=== PATIENT | female | born 1970 | race Caucasian/White ===

== ENCOUNTER 2016-12-06 10:44 | Day surgery (SDC) | payer OTHER ==
[2016-12-04 16:22] VITALS: BMI 22.8
[2016-12-06] MEDS ORDERED: PROPOFOL 20 ML ONE (11:15)
[2016-12-06 13:15] VITALS: BP 125/78; PULSE 65; TEMP 98.1
--- NOTE | 2016-12-08 15:20 | PATH ---
Surgical Pathology Report Patient Name: BRYANT DAVENPORT [facility]. Rec. #: [id number] /Age/Gender: 1970 (Age: 46) / F Account: [id number] Location: [facility] Taken: 12/06/2016 Received: 12/06/2016 Reported: 12/08/2016 Physicians: Soumya Vazquez M.D. Specimen(s) Received A: BX SECOND PORTION DUODENUM B: BX ANTRUM C: BX GE JUNCTION Clinical History GERD Gastritis Final Diagnosis A. SECOND PORTION DUODENUM, BIOPSY: DUODENAL MUCOSA WITH NO PATHOLOGIC FINDINGS. B. ANTRUM, BIOPSY: MILD CHRONIC GASTRITIS. IMMUNOSTAIN IS NEGATIVE FOR H. PYLORI ORGANISMS C. GE JUNCTION, BIOPSY: ESOPHAGO-GASTRIC JUNCTIONAL (SQUAMOCOLUMNAR) MUCOSA SHOWING MILD CHRONIC INFLAMMATION. NEGATIVE FOR INTESTINAL METAPLASIA. Electronically Signed Margarita Fontana M.D. Gross Description A. Received in formalin, labeled "second portion of duodenum" is a morley, irregular portion of soft tissue measuring 0.2 cm. in greatest dimension. The specimen is submitted in toto in one cassette. B. Received in formalin, labeled "antrum" are 2 morley, irregular portions of soft tissue measuring 0.1 and 0.3 cm. in greatest dimension. The specimens are submitted in toto in one cassette. C. Received in formalin, labeled "GE junction" are 3 morley, irregular portions of soft tissue ranging from 0.1-0.3 cm. in greatest dimension. The specimens are submitted in toto in one cassette. 12/07/2016 saudi12/07/2016
== END 2016-12-06 13:10 | disposition home or self-care (01) ==
LOC: FASU-ENDO 10:44
PROVIDERS: ATTEND Internal Medicine Gastroenterology
PROC: 0DB58ZX Excision of Esophagus, Via Natural or Artificial Opening Endoscopic, Diagnostic (ICD-10-PCS; 2016-12-06)
PROC: 0DB98ZX Excision of Duodenum, Via Natural or Artificial Opening Endoscopic, Diagnostic (ICD-10-PCS; principal; 2016-12-06 12:00)
PROC: 0DB68ZX Excision of Stomach, Via Natural or Artificial Opening Endoscopic, Diagnostic (ICD-10-PCS; 2016-12-06 12:00)
DX: K30 Functional dyspepsia (principal); K29.50 Unspecified chronic gastritis without bleeding
CPT/HCPCS: 84703; 88305-TC; 88342-TC